=== PATIENT | male | born 1955 | race Caucasian/White ===

== ENCOUNTER → 2017-08-31 14:09 | Outpatient (CLI) | payer BC, MEDICARE ==
[2017-08-31 14:41] LABS: C-REACTIVE PROTEIN 2.7 mg/dL (0.0-0.9); URIC ACID 2.9 mg/dL (2.6-7.2)
[2017-08-31 15:20] LABS: ERYTHROCYTE SEDIMENTATION RATE 48 mm/hr (0-20)
[2017-09-03 10:12] LABS: ANA REFLEX - DIRECT Negative (Negative)
[2017-09-04 21:08] LABS: CYCLIC CITRULL PEPTIDE IGG/IGA 5 units (0-19)
== END | disposition home or self-care (01) ==
LOC: D.LABREF 14:09
PROVIDERS: Radiology Diagnostic Radiology
DX: M25.50 Pain in unspecified joint (principal)

== ENCOUNTER → 2018-01-15 08:25 | Outpatient (CLI) | payer BC, MEDICARE ==
--- NOTE | ~2018-01-15 | HEMODYNAMI ---
PATIENT:CALE FORBES MEDICAL RECORD: [id number] : 59 LOCATION:[facility] ADMISSION DATE: 01/15/18 Generatedon:01/15/201811:12 Patient name: CALE FORBES Patient #: [id number] SSN: : 1955 Date of study: 01/15/2018 Page: Of Hemodynamic Procedure Report Patient Data Patient Demographics Procedure consent was obtained First Name: CALE Gender: Male Last Name: LEIDY : 1955 [facility] Initial: POLINA Age: 62 year(s) Patient #: [id number] Race: Unknown Additional ID: [id number] Contact details Address: [address] [place] [address] State: [place] City: [place] Zip code: [address] Past Medical History Allergies: No known allergies Admission Admission Data Admission Date: 01/15/2018 Admission Time: 8:25 Admit Source: Other Lab Results Lab Result Date: 01/15/2018 Lab Result Time: 9:00 Biochemistry Name Units Result Min Max BUN mg/dl 48 --(----)-* 7 18 Creatinine mg/dl 6.5 --(----)-* 0.6 1.3 CBC Name Units Result Min Max Hematocrit % 36.2 *-(----)-- 42 54 Hemoglobin g/dl 12.2 *-(----)-- 13.5 17.5 Procedure Procedure Types Cath Procedure Diagnostic Procedure LHC LHC w/Coronaries FFR/IVUS Intra-Coronary IVUS Initial PCI Procedure Coronary Stent Coronary Stent Initial PTCA PTCA Additional Miscellaneous Procedures Moderate Sedation up to 30 minutes Procedure Description Procedure Date Procedure Date: 01/15/2018 Procedure Start Time: 10:28 Procedure End Time: 11:04 Procedure Staff Name Function Shyam Simeon RN Nurse Ever Leslie MD Performing Physician Slick Akins RT Monitor Yoly Smith RT Scrub Procedure Data Cath Procedure Fluoroscopy Diagnostic fluoroscopy Total fluoroscopy Time: 12 time: 12 min min Diagnostic fluoroscopy Total fluoroscopy dose: dose: 2895 mGy 2895 mGy Contrast Material Contrast Material Type Amount (ml) Isovue 300 204 Entry Location Entry Primary Successful Side Size Upsize Upsize Entry Closure Succes sful Closure Location (Fr) 1 (Fr) 2 (Fr) Remarks Device Remarks Femoral Right 5 Fr 6 Fr Exoseal artery Short Estimated blood loss: 10 ml Diagnostic catheters Device Type Used For End Catheter Placement MULTIPACK Pigtail 5 Fr Procedure catheter MULTIPACK JL 4.0 5Fr Procedure catheter MULTIPACK 3DRC 5Fr Procedure catheter Procedure Complications No complications Procedure Medications Medication Administration Route Dosage Oxygen NC 2 l/min Lidocaine 2% added to field 20 Heparin Flush Bag added to field 2 bags (1000units/500ml NS) 0.9% NaCl I.V. 100 ml/hr Benadryl I.V. 50 mg Versed I.V. 1 mg Fentanyl I.V. 50 mcg Versed I.V. 1 mg Fentanyl I.V. 50 mcg Heparin Bolus I.V. 4000 units Fentanyl I.V. 50 mcg Versed I.V. 1 mg Fentanyl I.V. 50 mcg Hemodynamics Rest HGB: 12.2 (g/dl) Heart Rate: 61 (bpm) Pressure Samples Time Site Value (mmHg) Purpose Heart Use Rate(bpm) 10:30 LV 160/70,76 Snapshot 63 10:30 LV 215/5,33 Snapshot 72 10:30 LV 202/27,32 Snapshot 62 10:37 AO 216/101(146) Snapshot 64 Snapshots Pre Cath Intra NCS Post Cath Vital Signs Time Heart Resp SPO2 etCO2 NIBP (mmHg) Rhythm Pain Sedation Rate (ipm) (%) (mmHg) Status Level (bpm) 10:07:21 59 12 97 0 193/94(168) NSR 0 (11) 10(A) , No pain 10:12:34 60 10 98 32.4 195/106(166) NSR 0 (11) 10(A) , No pain 10:17:48 58 15 99 26.4 202/98(181) NSR 0 (11) 10(A) , No pain 10:24:54 60 17 97 30.9 203/111(173) NSR 0 (11) 10(A) , No pain 10:29:53 60 15 98 29.4 209/107(140) NSR 0 (11) 9(A) , No pain 10:34:54 65 13 98 34 217/111(142) NSR 0 (11) 9(A) , No pain 10:39:59 65 14 98 30.2 220/116(140) NSR 0 (11) 9(A) , No pain 10:45:04 64 15 97 38.5 206/102(136) NSR 0 (11) 9(A) , No pain 10:50:05 66 29 99 33.2 189/111(136) NSR 0 (11) 9(A) , No pain 10:56:04 66 16 98 36.2 218/118(147) NSR 0 (11) 9(A) , No pain 11:01:07 66 16 96 26.4 204/108(143) NSR 0 (11) 10(A) , No pain Medications Time Medication Route Dose Verified Delivered Reason Notes Effectiveness by by 10:24:22 Benadryl I.V. 50 mg Ever Buffie used for Anuj Simeon RN procedure 10:25:47 Oxygen NC 2 Ever Buffie used for l/min Anuj Simeon RN procedure 10:25:55 Lidocaine 2% added 20ml Ever Ever for local to vial Anuj Leslie MD anesthetic field 10:26:02 Heparin Flush added 2 Ever Ever used for Bag to bags Anuj Leslie MD procedure (1000units/500ml field NS) 10:26:10 0.9% NaCl I.V. 100 Ever Buffie Per physician ml/hr Anuj Simeon RN 10:27:03 Versed I.V. 1 mg Ever Buffie for sedation Anuj Simeon RN 10:27:09 Fentanyl I.V. 50 Ever Buffie for sedation mcg Anuj Simeon RN 10:31:28 Versed I.V. 1 mg Evre Buffie for sedation Anuj Simeon RN 10:31:32 Fentanyl I.V. 50 Ever Buffie for sedation mcg Anuj Simeon RN 10:37:00 Heparin Bolus I.V. 4000 Ever Buffie for verifi ed units Anuj Simeon RN anticoagulation with dr leslie 10:54:35 Fentanyl I.V. 50 Ever Buffie for sedation mcg Anuj Simeon RN 10:57:19 Versed I.V. 1 mg Ever Buffie for sedation Anuj Simeon RN 10:57:23 Fentanyl I.V. 50 Ever Howe for sedation mcg Anuj Simeon research development manager Log Time Note 9:43:39 Informed consent obtained and on chart 9:43:41 Admit Source: Other 9:45:19 Diagnostic Cath status Elective 9:45:21 Time tracking: Regular hours 9:45:25 Plan of Care:Hemodynamics will remain stable., Cardiac rhythm will remain stable., Comfort level will be maintained., Respiratory function will remain adequate., Patient/ family verbilizes understanding of procedure., Procedure tolerated without complication., Recovers from procedure without complications.. 9:45:28 Yoly Smith RT(R) sent for patient. Start room use. 9:45:40 H&P Date Dictated: 01/14/2018 Within 30 days and on chart., H&P Addendum completed by physician on day of procedure. (MUST COMPLETE FOR ALL OUTPATIENTS). 9:49:25 Patient received from Pre/Post Procedure Room to CCL 1 Alert and oriented. Tansferred to table in Supine position. 9:49:26 Warm blankets applied, and molly hugger turned on for patient comfort. 9:49:27 Correct patient and procedure confirmed by team. 9:49:28 ECG and BP/O2 sat monitors applied to patient. 9:49:30 Pre-op teaching completed and patient verbalized understanding. 9:49:30 Pre-procedure instructions explained to patient. 9:49:32 Family in waiting room. 9:49:33 Patient NPO since Midnight. 10:05:00 Patient allergic to No known allergies 10:05:02 Vital chart was started 10:05:03 Baseline sample Acquired. 10:05:06 Rhythm: sinus rhythm 10:05:08 Full Disclosure recording started 10:05:10 Is the patient allergic to Iodine/contrast media? No. 10:05:11 Is patient on blood thinner?Yes 10:05:13 ACC The patient was administered the following blood thiners within the last 24 hours: ACCPlavix 10:05:14 Patient diabetic? Yes. 10:05:15 If diabetic: On Metformin? No 10:05:17 Previous problem with sedation/anesthesia? No ? 10:05:18 Sleep apnea? Yes 10:05:18 Snore? Yes 10:05:20 Deviated septum? No 10:05:21 Sticks out tongue? No 10:05:21 Opens mouth fully? Yes 10:05:24 Airway obstruction? No ? 10:05:25 Dentures? No ? 10:05:28 Pre procedure: right dorsailis pedis pulse Doppler 10:05:30 Patient pain scale 0/10 ?. 10:05:40 IV patent on arrival in right hand with 0.9% NaCl at [facility]. 10:06:44 Lab Result : Hemoglobin 12.2 g/dl 10:06:44 Lab Result : Hematocrit 36.2 % 10:06:44 Lab Result : BUN 48 mg/dl 10:06:44 Lab Result : Creatinine 6.5 mg/dl 10:06:47 Lab results completed and on chart. 10:06:49 Right groin area was prepped with chlora-prep and draped in sterile fashion 10:06:50 Alarms reviewed by R. N. 10:06:51 Sharps counted by scrub and verified by R.N. 10:06:53 Use device set Femoral Dx 10:06:54 ACIST Syringe (36693) opened to sterile field. 10:06:55 Medline Cath Pack ([id number]) opened to sterile field. 10:06:55 Bag Decanter (2002S) opened to sterile field. 10:06:56 ACIST Manifold (74494) opened to sterile field. 10:06:56 ACIST Hand Control (33508) opened to sterile field. 10:06:57 Tegaderm 4 x 4 (1626W) opened to sterile field. 10:06:59 PERCUTANEOUS ENTRY 19GA needle opened to sterile field. 10:07:04 DIAGNOSTIC Multipack 5Fr catheter set (HN6683) opened to sterile field. 10:07:05 SHEATH 5FR [place] (LQQ818) opened to sterile field. 10:07:06 DIAGNOSTIC WIRE .035 260cm J wire (635897) opened to sterile field. 10:15:05 Timer 1 started at 9:45 AM, stopped at 10:15 AM, duration 00:29:58 sec. 10:16:59 Final Timeout: patient, procedure, and site verified with staff and physician. All members of the team are in agreement. 10:16:59 --------ALL STOP TIME OUT------ 10:16:59 Physician arrived 10:17:02 Right groin site verified by team. 10:17:04 Physical assessment completed. ASA score P 2 - A patient with mild systemic disease as per Ever Leslie MD. 10:17:06 Sedation plan: IV Moderate Sedation Medication:Versed, Fentanyl 10:17:41 Zero performed for pressure channel P1 10:24:22 Benadryl 50 mg I.V. was administered by Shyam Simeon RN; used for procedure; 10::47 Oxygen 2 l/min NC was administered by Shyam Simeon RN; used for procedure; 10::55 Lidocaine 2% 20ml vial added to field was administered by Ever Leslie MD; for local anesthetic; 10::02 Heparin Flush Bag (1000units/500ml NS) 2 bags added to field was administered by Ever Leslie MD; used for procedure; 10:26:10 0.9% NaCl 100 ml/hr I.V. was administered by Shyam Simeon RN; Per physician; 10::03 Versed 1 mg I.V. was administered by Shyam Simeon RN; for sedation; 10::09 Fentanyl 50 mcg I.V. was administered by Shyam Simeon RN; for sedation; 10:28:45 Procedure started. 10:28:48 Local anesthetic to right femoral artery with Lidocaine 2% by Ever Leslie MD.INITIAL ACCESS ONLY 10:28:55 A 5 Fr sheath was inserted into the Right Femoral artery 10:29:35 A MULTIPACK Pigtail 5 Fr catheter was advanced over the wire and used for Procedure. 10:30:32 LV gram done using GRANT 10:30:37 Injector settings: Ml/sec: 10, Volume: 20, 10:30:42 EF : 30 % 10:30:44 Catheter exchanged over wire. 10:30:57 A MULTIPACK JL 4.0 5Fr catheter was advanced over the wire and used for Procedure. 10:31:09 LCA angiography performed. 10:31:28 Versed 1 mg I.V. was administered by Shyam Simeon RN; for sedation; 10::32 Fentanyl 50 mcg I.V. was administered by Shyam Simeon RN; for sedation; ::46 SHEATH 6FR [place] (NRC747) opened to sterile field. 10:31:46 INFLATOR Merit BasixCompak (BB0036) opened to sterile field. 10:31:51 EXOSEAL 6Fr (EX600) opened to sterile field. 10:32:24 Catheter exchanged over wire. 10:32:32 A MULTIPACK 3DRC 5Fr catheter was advanced over the wire and used for Procedure. 10:33:01 WHISPER 190cm wire ([id number]) opened to sterile field. 10:33:06 RCA angiography performed. 10:35:05 Right renal angiography performed. 10:35:14 Left renal angiography performed. 10:35:31 Catheter removed. 10:37:00 Heparin Bolus 4000 units I.V. was administered by Shyam Simeon RN; for anticoagulation; verified with dr leslie 10:37:06 GUIDE 6FR AR 2.0 catheter (OM0ON35) opened to sterile field. 10:37:15 Sheath upsized to a 6 Fr Short. 10:37:19 6 Fr ar 2 guide catheter was inserted over the wire 10:37:24 whisper wire advanced. 10:37:36 Wire advanced across lesion. 10:37:44 [place] Eagleye IVUS Catheter (68001R) opened to sterile field. 10:37:48 IVUS catheter advanced over wire. 10:37:51 IVUS pass to RCA lesion performed. 10:37:54 IVUS catheter removed over wire. 10:40:29 Wire removed. 10:40:31 Guide catheter removed. 10:40:42 CHOICE PT Extra Support J 300cm guide wire ([id number]) opened to sterile field. 10:41:03 GUIDE 6FR EBU 4.5 catheter ([id number]) opened to sterile field. 10:41:11 6 Fr EBU 4.5 guide catheter was inserted over the wire 10:41:21 CHOICE PT wire advanced. 10:42:01 Wire advanced across lesion. 10:42:04 IVUS catheter advanced over wire. 10:42:05 IVUS pass to LAD lesion performed. 10:42:12 IVUS catheter removed over wire. 10:47:19 Inflation Number: 1 A PROMUS Premier 3.5 x 20 stent ([id number]) was prepped and advanced across the Mid LAD. The stent was deployed at 23 MARTHA for 0:10 (min:sec). 10:47:51 Stent catheter was removed intact over wire. 10:49:42 Inflation number: 2 A NC EUPHORA 4.0 x 12 balloon ([id number]) was prepped and advanced across the Mid LAD, then inflated to 23 MARTHA for 0:10 (min:sec). 10:52:56 WHISPER wire advanced to DIAG. 10:54:35 Fentanyl 50 mcg I.V. was administered by Shyam Simeon RN; for sedation; 10:54:41 Wire advanced across lesion. 10:55:20 The EMERGE OTW 3.0 x 12 balloon ([id number]) was advanced and then removed because of failure to cross lesion 10:56:58 Inflation number: 1 A EUPHORA 1.5 x 15 Balloon ([id number]) was prepped and advanced across the 1st Diag, then inflated to 21 MARTHA for 0:10 (min:sec). 10:57:17 Inflation number: 2 The EUPHORA 1.5 x 15 Balloon ([id number]) was reinflated across the 1st Diag, to 21 MARTHA for 0:10 (min:sec). 10:57:19 Versed 1 mg I.V. was administered by Shyam Simeon RN; for sedation; 10:57:23 Fentanyl 50 mcg I.V. was administered by Shyam Simeon RN; for sedation; 10:57:33 Balloon removed over the wire. 10:57:34 Wire removed from DIAG. 10:58:50 Inflation Number: 1 A YANG OTW 4.0 x 12 stent ([id number]) was prepped and advanced across the Prox LAD. The stent was deployed at 23 MARTHA for 0:10 (min:sec). 10:59:53 Wire removed. 10:59:53 Stent catheter was removed intact over wire. 10:59:54 Guide catheter removed. 11:00:04 Sheath removed intact; hemostasis achieved with Exoseal to the Right Femoral artery. 11:00:05 Procedure ended.(Physican Out) 11:00:52 Fluoroscopy time 12.00 minutes. 11:00:57 Fluoroscopy dose: 2895 mGy 11:00:57 Flurop Dose total: 2895 11:01:00 Contrast amount:Isovue 300 204ml. 11:01:01 Sharps counted by scrub and verified by R.N. 11:01:24 Insertion/operative site no bleeding no hematoma. 11:01:26 Post-op/insertion site Right Femoral artery dressed using a 4 x 4 and Tegaderm. 11:01:31 Post right femoral artery:stable, soft, clean and dry 11:01:32 Post Procedure Pulses reassessed and unchanged 11:01:34 Post-procedure physical assessment completed. ASA score P 2 - A patient with mild systemic disease as per Ever Leslie MD. 11:01:37 Post procedure rhythm: unchanged. 11:01:39 Estimated blood loss: 10 ml 11:01:41 Post procedure instruction explained to patient.Patient verbalizes understanding. 11:01:50 Patient needs reinforcement of post procedure teaching. 11:02:52 Procedure type changed to Cath procedure, Diagnostic procedure, LHC, LHC w/Coronaries, FFR/IVUS, Intra-Coronary IVUS Initial, PCI procedure, Coronary Stent, Coronary Stent Initial, PTCA, PTCA Additional, Miscellaneous Procedures, Moderate Sedation up to 30 minutes 11:04:24 Procedure and supply charges have been captured, reviewed, submitted and are correct. 11:04:26 Procedure Complication : No complications 11:04:27 Vital chart was stopped 11:04:28 See physician's report for complete and final results. 11:04:29 Report given to Pre/Post Procedure Room. 11:04:32 Patient transfered to Pre/Post Procedure Room with Stretcher. 11:04:34 Full Disclosure recording stopped 11:04:34 Procedure ended. 11:04:44 End room use (Document Last) Intervention Summary Intervention Notes Time ActionType Lesion and Equipment Action# Pressure Duration Attributes Used 10:47:19 Place stent Mid LAD PROMUS 1 23 00:10 Premier 3.5 x 20 stent ([id number]) 10:49:42 Inflate Mid LAD NC EUPHORA 2 23 00:10 balloon 4.0 x 12 balloon ([id number]) 10:55:20 Discard EMERGE OTW Balloon 3.0 x 12 balloon ([id number]) 10:56:58 Inflate 1st Diag EUPHORA 1.5 x 1 21 00:10 balloon 15 Balloon ([id number]) 10:57:17 Reinflate 1st Diag EUPHORA 1.5 x 2 21 00:10 balloon 15 Balloon ([id number]) 10:58:50 Place stent Prox LAD YANG OTW 4.0 1 23 00:10 x 12 stent ([id number]) Device Usage Item Name Manufacture Quantity Catalog Number Hospital Part Current M inimal Lot# / Charge Number Stock Stock Serial# Code ACIST Syringe Acist 1 92753 375311 183911 925079 2 0 (20175) Medical Systems Inc Bag Decanter Microtek 1 2001S 487872 04122 846925 5 (2001S) Medical Inc. Medline Cath Cardinal 1 [id number] 182703 68215 467705 5 Pack Health ([id number]) ACIST Hand Acist 1 42563 357343 180281 043133 5 Control Medical (09739) Systems Inc ACIST Acist 1 50073 332045 942684 528625 5 Manifold Medical (13776) Systems Inc Tegaderm 4 x 3M 1 1626W 851929 622129 724950 5 4 (1626W) PERCUTANEOUS Cook Medical 1 N12603 515713 641531 5 ENTRY 19GA needle DIAGNOSTIC Cardinal 1 UR1431 091034 44267 372683 3 0 Multipack 5Fr Health catheter set (WW6683) SHEATH 5FR Terumo 1 TJW775 226723 113199 942544 4 0 [place] (RJD678) DIAGNOSTIC St Fernando 1 931632 254227 490985 953564 3 0 WIRE .035 260cm J wire (306593) MULTIPACK Cardinal 1 581993 5 Pigtail 5 Fr Health catheter MULTIPACK JL Cardinal 1 631271 5 4.0 5Fr Health catheter INFLATOR Merit 1 VZ8552 669262 740811 114392 1 5 Netgamix Inc Medical BasixCompak (GH5828) SHEATH 6FR Terumo 1 QAC983 224045 546415 098551 4 0 [place] (JTN548) EXOSEAL 6Fr Cardinal 1 EX600 063965 032014 242009 1 0 (EX600) Health MULTIPACK Cardinal 1 581403 5 3DRC 5Fr Health catheter WHISPER 190cm [place] 1 [id number] 509435 102664 747494 5 wire Vascular ([id number]) GUIDE 6FR AR Medtronic 1 MJ9XM80 380307 21793 996358 1 2.0 catheter (IH1NM66) [place] 1 52758I 354211 896236 256463 8 [place] Eagley[place] IVUS Catheter (84679V) CHOICE PT Earlimart 1 [id number] 339956 271237 318656 5 Extra Support Scientific J 300cm guide wire (3046736T6) GUIDE 6FR EBU Medtronic 1 TQ6DTK86 204873 13949 428480 0 4.5 catheter ([id number]) PROMUS Earlimart 1 [id number] 352561 375872 5 [id number] Premier 3.5 x Scientific 20 stent ([id number]) [place] EUPHORA Medtronic 1 [id number] 890022 430349 422812 1 [id number] 4.0 x 12 balloon ([id number]) EMERGE OTW Earlimart 1 [id number] 451521 124006 916410 5 [id number] 3.0 x 12 Scientific balloon ([id number]) EUPHORA 1.5 x Medtronic 1 [id number] 623365 096911 163784 5 [id number] 15 Balloon ([id number]) YANG OTW 4.0 Medtronic 1 [id number] 135842 6794949 101177 5 [id number] x 12 stent ([id number]) Signature Audit [place] Stage Time Signature Unsigned Intra-Procedure 01/15/2018 Slick Akins 11:09:48 AM RT(R) Signatures Monitor : Slick Akins RT Signature : Date : Time : [place] [address] [place] [address]
--- NOTE | ~2018-01-15 | OP ---
PATIENT NAME: CALE FORBES MEDICAL RECORD: [id number] :59 LOCATION:D.CAT ADMISSION DATE: SURGEON: BARBY PRITCHETT MD DATE OF OPERATION: 01/15/2018 PROCEDURES: 1. PTCA stent to LAD. 2. PTCA LAD diagonal. 3. Left heart catheterization. 4. Selective coronary angiography. 5. Left ventriculogram. 6. Bilateral selective renal angiography. 7. Intravascular ultrasound to RCA and LAD. INDICATION: Angina and coronary artery disease, renal artery stenosis, hypertension. PROCEDURE IN DETAIL: After informed consent was obtained and after a detailed explanation of the risks, benefits as well as alternative therapies, the patient elected to proceed with angiogram and angioplasty. The right femoral area was prepped and draped in normal sterile fashion. Right femoral artery was cannulated via modified Seldinger technique with placement of 6-Macedonian sheath. All catheters exchanged through this sheath. FINDINGS: The left ventriculogram was performed in standard 30-degree GRANT view reveals global hypokinesis throughout all segments. Overall ejection fraction estimated at 35% to 40%. SELECTIVE CORONARY ANGIOGRAPHY: 1. Left main showed no significant angiographic disease. 2. Left anterior descending is extremely heavily calcified, intravascular ultrasound reveals greater than 90% stenosis times 2, the diagonal has 99% stenosis. 3. The left circumflex has [id number]-nmuyqumw irregularities, but no flow-limiting stenosis. 4. Right coronary artery has moderate irregularities, intravascular ultrasound revealed nothing greater than 70%. PTCA STENT OF THE LAD: The stents used were 4.0 x 12 [place] and 3.5 x 20 mm Promus. High-pressure balloon was taken into the mid vessel. It was a 4.0 high pressure balloon to 23 atmospheres. The diagonal was only crossed partially with a 1.5 balloon. This was inflated to 21 atmospheres. Result was 0% to 30% residual. OVERALL IMPRESSION: Successful percutaneous transluminal coronary angioplasty stent of the left anterior descending going from greater than 90% initial stenosis to 0% residual stenosis. TRANSINT:[id number] Voice Confirmation ID: [id number] DOCUMENT ID: [id number] OPERATIVE REPORT [id number] CALE FORBES BARBY PRITCHETT MD at 1159 CC: [id number] DICTATION DATE: 01/15/18 1105 RESIDENT CARE SUPERVISOR: 01/15/18 1318 DEP CLI 01/15/18 [facility] [address] [place] [address]
[~2018-01-15 08:25] MED LIST: AMBIEN5 MG PO; BYSTOLIC20 MG PO; CARDURA4 MG; CATAPRES0.3 MG PO; LANTUS INSULIN10 ML SC; LASIX80 MG PO; LYRICA75 MG PO; PLAVIX75 MG PO; TESSALON PERLE100 MG PO; TOPROL XL50 MG PO
[2018-01-15 09:05] LABS: BASOPHILS 0.9 % (0-2); EOSINOPHILS 3.7 % (0-7); HEMATOCRIT 36.2 % (42.0-54.0); HEMOGLOBIN 12.2 g/dL (13.5-17.5); LYMPHOCYTES 21.1 % (15-50); MCH 33.8 pg (26.0-34.0); MCHC 33.7 g/dL (31.0-37.0); MCV 100.3 fL (80.0-100.0); MEAN PLATELET VOLUME 11.9 fL (7.4-10.4); MONOCYTES 13.3 % (2-11); PLATELET COUNT 206 10x3/uL (130-400); RBC 3.61 10x6/uL (4.20-6.10); RDW 14.4 % (11.5-14.5); WBC 7.9 10x3/uL (4.8-10.8)
[2018-01-15 09:17] LABS: ANION GAP 19.3 mmol/L (8-16); CARBON DIOXIDE 23.4 mmol/L (21.0-32.0); CREATININE - SERUM 6.5 mg/dL (0.6-1.3); POTASSIUM - SERUM 4.7 mmol/L (3.5-5.1)
[2018-01-15 09:18] VITALS: BP 162/101; BMI 40.7
== END | disposition home or self-care (01) ==
LOC: D.CATH 08:25
PROVIDERS: Internal Medicine Interventional Cardiology
DX: I25.119 Atherosclerotic heart disease of native coronary artery with unspecified angina pectoris (principal); I70.1 Atherosclerosis of renal artery; I10 Essential (primary) hypertension; Z01.812 Encounter for preprocedural laboratory examination

== ENCOUNTER 2018-10-28 15:23 | Emergency (ER) | payer BC, MEDICARE | END 2018-10-28 18:18 | disposition left against medical advice (07) | LOC: D.ER 15:23 | DX: R53.1 Weakness (principal) ==

== ENCOUNTER → 2018-12-03 09:08 | Outpatient (CLI) | payer MEDICARE, BC ==
[2018-10-28 15:30] VITALS: BMI 33.8
[~2018-12-03 09:08] MED LIST changes: +ALEVE220 MG PO; +ATIVAN1 MG PO; +BAYER CHEWABLE81 MG PO; +CELEXA20 MG PO; +COZAAR50 MG PO; +GABAPENTIN100 MG PO; +HUMALOG 30100 UNITS/ SC; +HYDRALAZINE HCL50 MG PO; +RENVELA800 MG PO
--- NOTE | 2018-12-04 16:39 | ST ---
PATIENT:CALE FORBES MEDICAL RECORD: [id number] SEX: M LOCATION:[facility] ORDER #: ADMISSION DATE: 12/03/18 AGE OF PATIENT: 63 REFERRING PHYSICIAN: INTERPRETING PHYSICIAN: BARBY PRITCHETT MD DATE OF SERVICE: 12/03/2018 PROCEDURE: Nuclear Stress Test. INDICATION: Angina, coronary artery disease, hypertension, and hyperlipidemia. DESCRIPTION: He was exercised on standard Lexiscan protocol with 33 mCi of sestamibi injected at peak stress, 11 mCi were used previously for rest images. FINDINGS: Gated SPECT reveals a decreased ejection fraction at 41% with decreased thickening and brightening throughout the anterior segments. SPECT IMAGING: Cardiolite was used as myocardial perfusion agent. There is a mixed perfusion defect anteriorly, this includes the basal, mid, apical, anterior segments as well as the apex itself. This is partially fixed, partially reversible. The remaining segments are with homogeneous uptake at rest and stress. OVERALL IMPRESSION: This is an abnormal nuclear stress test with mixed perfusion defect anteriorly and apically with a resultant decreased ejection fraction of 41%. In this patient with ongoing symptomatology, the current scan does suggest the presence of hemodynamically significant coronary artery disease. We will proceed with coronary angiography as followup study. TRANSINT:[id number] Voice Confirmation ID: [id number] DOCUMENT ID: [id number] BARBY PRITCHETT MD at 1639 CC: [id number] DICTATION DATE: 12/03/18 1611 MOLD CLOSER: 12/04/18 0743 [facility] CLI 12/03/[address] [address]
== END | disposition home or self-care (01) ==
LOC: D.HCCARDIO 09:08
DX: I25.119 Atherosclerotic heart disease of native coronary artery with unspecified angina pectoris (principal); I10 Essential (primary) hypertension; E78.5 Hyperlipidemia, unspecified

== ENCOUNTER 2018-12-17 07:59 | Outpatient (CLI) | payer MEDICARE, BC ==
[~2018-12-17] VITALS: Ht 190.5 cm; Wt 122.7 kg
--- NOTE | ~2018-12-17 | HEMODYNAMI ---
PATIENT:CALE FORBES MEDICAL RECORD: [id number] : 59 LOCATION:[facility] ADMISSION DATE: 12/17/18 Generatedon:12/17/201811:34 Patient name: CALE FORBES Patient #: [id number] SSN: : 1955 Date of study: 12/17/2018 Page: Of Hemodynamic Procedure Report Patient Data Patient Demographics Procedure consent was obtained First Name: CALE Gender: Male Last Name: LEIDY : 1955 [facility] Initial: POLINA Age: 63 year(s) Patient #: [id number] Race: Unknown Additional ID: [id number] Contact details [address]: [address] [place] [address] State: [place] City: [place] Zip code: [address] Past Medical History Allergies: No known allergies Admission Admission Data Admission Date: 12/17/2018 Admission Time: 7:59 Admit Source: Other Height (in.): 74 BSA: 2.47 (m2) Height (cm.): 187.96 BMI: 34.67 (kg/m2) Weight (lbs.): 270 Weight (kg.): 122.47 Procedure Procedure Types Cath Procedure Diagnostic Procedure [facility] w/Coronaries Sedation Charges Moderate Sedation up to 30 minutes PCI Procedure Coronary Stent Coronary Stent Initial Peripheral Cath Diagnostic Procedure Fleet Administrator Peripheral Procedures Vsile-Eaeoxiq-Vjt-Off Procedure Description Procedure Date Procedure Date: 12/17/2018 Procedure Start Time: 11:04 Procedure End Time: 11:33 Procedure Staff Name Function Ever Leslie MD Performing Physician Jayne Durand RT Monitor Lucille Carter RT Scrub John Bower RN Nurse Procedure Data Cath Procedure Fluoroscopy Diagnostic fluoroscopy Total fluoroscopy dose: 7.5 dose: 7.5 mGy mGy Contrast Material Contrast Material Type Amount (ml) Isovue 300 157 Entry Location Entry Primary Successful Side Size Upsize Upsize Entry Closure Succes sful Closure Location (Fr) 1 (Fr) 2 (Fr) Remarks Device Remarks Femoral Right 5 Fr 7 Fr artery Short Estimated blood loss: 10 ml Diagnostic catheters Device Type Used For End Catheter Placement MULTIPACK Pigtail 5 Fr Procedure catheter MULTIPACK JL 4.0 5Fr Procedure catheter MULTIPACK 3DRC 5Fr Procedure catheter MULTIPACK Pigtail 5 Fr Procedure catheter Procedure Complications No complications Procedure Medications Medication Administration Route Dosage 0.9% NaCl I.V. 100 ml/hr Oxygen etCO2 Nasal cannula 2 l/min Heparin Flush Bag added to field 2 bags (1000units/500ml NS) Lidocaine 2% added to field 20 Versed I.V. 2 mg Fentanyl I.V. 100 mcg Heparin Bolus I.V. 4000 units Hemodynamics Rest BSA: 2.47 (m2) O2 Consumption: Estimated: 277.75 (ml/min) O2 Consumption indexed : Estimated:112.45 (ml/min/m) Heart Rate: 57 (bpm) Snapshots Pre Cath Intra NCS Post Cath Vital Signs Time Heart Resp SPO2 etCO2 NIBP (mmHg) Rhythm Pain Sedation Rate (ipm) (%) (mmHg) Status Level (bpm) 10:46:14 57 11 99 0 206/102(149) NSR 0 (11) 10(A) , No pain 10:50:46 58 14 96 0 195/91(143) NSR 0 (11) 10(A) , No pain 10:55:12 57 12 97 37.9 194/95(142) NSR 0 (11) 10(A) , No pain 10:59:39 56 11 98 37.1 185/93(148) NSR 0 (11) 10(A) , No pain 11:04:03 57 12 97 38.6 171/88(138) NSR 0 (11) 10(A) , No pain 11:08:25 59 12 98 43.2 184/82(128) NSR 0 (11) 10(A) , No pain 11:12:49 59 19 98 41.6 195/89(143) NSR 0 (11) 10(A) , No pain 11:17:20 59 12 97 42.4 176/79(120) NSR 0 (11) 10(A) , No pain 11:21:42 59 14 97 41.6 178/83(133) NSR 0 (11) 10(A) , No pain 11:26:04 58 13 97 39.4 172/87(118) NSR 0 (11) 10(A) , No pain 11:30:24 58 13 97 39.4 186/86(146) NSR 0 (11) 10(A) , No pain Medications Time Medication Route Dose Verified Delivered Reason Notes Effectiveness by by 10:52:43 0.9% NaCl I.V. 100 John John Per physician ml/hr Sathish Bower RN RN 10:53:11 Oxygen etCO2 2 John John Per physician Nasal l/min Sathish Bower cannula RN RN 10:53:23 Heparin Flush added 2 John John used for Bag to bags Sathish Bower procedure (1000units/500ml field RN RN NS) 10:53:35 Lidocaine 2% added 20ml John John for local to vial Sathish Bower anesthetic field RN RN 11:01:18 Versed I.V. 2 mg John John for sedation Sathish Bower RN RN 11:01:28 Fentanyl I.V. 100 John John for sedation mcg Sathish Bower RN RN 11:12:20 Heparin Bolus I.V. 4000 John John for units Sathish Bower anticoagulation RN [employer] Log Time Note 10:10:39 Informed consent obtained and on chart 10::44 Diagnostic Cath Status : Elective 10:11:02 John Bower RN sent for patient. Start room use. 10:11:03 Time tracking: Regular hours (M-F 7:00 - 5:00) 10:11:08 Plan of Care:Hemodynamics will remain stable., Cardiac rhythm will remain stable., Comfort level will be maintained., Respiratory function will remain adequate., Patient/ family verbilizes understanding of procedure., Procedure tolerated without complication., Recovers from procedure without complications.. 10:25:19 Admit Source: Other 10:25:32 Patient Height : 74 inches 10:25:35 Patient Weight : 270 lbs 10:37:13 Patient received from Pre/Post Procedure Room to CCL 2 Alert and oriented. Tansferred to table in Supine position. 10:37:14 Warm blankets applied, and molly hugger turned on for patient comfort. 10:37:14 Correct patient and procedure confirmed by team. 10:37:15 ECG and BP/O2 sat monitors applied to patient. 10:44:06 Vital chart was started 10:44:07 Baseline sample Acquired. 10:44:13 Rhythm: sinus rhythm 10:44:14 Full Disclosure recording started 10:44:18 H&P Date Dictated: 12/17/2018 Within 30 days and on chart., H&P Addendum completed by physician on day of procedure. (MUST COMPLETE FOR ALL OUTPATIENTS). 10:44:19 Pre-procedure instructions explained to patient. 10:44:19 Pre-op teaching completed and patient verbalized understanding. 10:44:20 Family in waiting room. 10:44:22 Patient NPO since Midnight. 10:44:23 Is the patient allergic to Iodine/contrast media? No. 10:44:24 Was the patient premedicated? No 10:44:25 Is patient on blood thinner?Yes 10:44:28 ACC The patient was administered the following blood thiners within the last 24 hours: ACCPlavix 10:44:30 Patient diabetic? No. 10:44:33 Previous problem with sedation/anesthesia? No ? 10:44:35 Snore? Yes 10:44:36 Sleep apnea? Yes 10:44:37 Deviated septum? No 10:44:38 Opens mouth fully? Yes 10:44:39 Sticks out tongue? Yes 10:44:40 Airway obstruction? No ? 10:44:43 Dentures? No ? 10:44:49 Pre procedure: right dorsailis pedis pulse 2+ Normal; easily identifiable; not easily obliterated 10:44:51 Patient pain scale 0/10 ?. 10:44:57 IV patent on arrival in right forearm with 0.9% NaCl at KVO. 10:44:59 Lab results completed and on chart. 10:45:03 Right Radial & Right Groin area was prepped with chlora-prep and draped in sterile fashion 10:45:04 Alarms reviewed by R. N. 10:45:05 Sharps counted by scrub and verified by R.N. 10:46:44 If diabetic: On Metformin? No 10:46:55 Use device set Femoral Dx 10:46:56 ACIST Syringe (51528) opened to sterile field. 10:46:57 Bag Decanter (2002S) opened to sterile field. 10:46:57 Medline Cath Pack ([id number]) opened to sterile field. 10:46:57 DIAGNOSTIC WIRE .035 260cm J wire (766344) opened to sterile field. 10:46:59 ACIST Hand Control (69697) opened to sterile field. 10:46:59 ACIST Manifold (41856) opened to sterile field. 10:47:00 DIAGNOSTIC Multipack 5Fr catheter set ([id number]) opened to sterile field. 10:47:01 Tegaderm 4 x 4 (1626W) opened to sterile field. 10:47:04 SHEATH 5FR Wendel (KFJ003) opened to sterile field. 10:52:43 0.9% NaCl 100 ml/hr I.V. was administered by John Bower RN; Per physician; 10:53:11 Oxygen 2 l/min etCO2 Nasal cannula was administered by John Bower RN; Per physician; 10:53:23 Heparin Flush Bag (1000units/500ml NS) 2 bags added to field was administered by John Bower RN; used for procedure; 10:53:35 Lidocaine 2% 20ml vial added to field was administered by John Bower RN; for local anesthetic; 10:54:37 Physician arrived 10:54:38 --------ALL STOP TIME OUT------ 10:54:39 Final Timeout: patient, procedure, and site verified with staff and physician. All members of the team are in agreement. 10:54:40 Right groin site verified by team. 10:54:46 Physical assessment completed. ASA score P 2 - A patient with mild systemic disease as per Ever Leslie MD. 10:54:51 Sedation plan: IV Moderate Sedation Medication:Versed, Fentanyl 10:59:20 Zero performed for pressure channel P1 10:59:28 Zero performed for pressure channel P1 10:59:34 Zero performed for pressure channel P1 11:01:18 Versed 2 mg I.V. was administered by John Bower RN; for sedation; 11:01:28 Fentanyl 100 mcg I.V. was administered by John Bower RN; for sedation; 11:03:56 Procedure started. 11:04:06 Local anesthetic to right femoral artery with Lidocaine 2% by Ever Leslie MD.INITIAL ACCESS ONLY 11:04:17 A 5 Fr sheath was inserted into the Right Femoral artery 11:04:30 A MULTIPACK Pigtail 5 Fr catheter was advanced over the wire and used for Procedure. 11:04:34 LV angiography performed. 11:04:47 EF : 50 % 11:04:48 Catheter removed. 11:04:55 A MULTIPACK JL 4.0 5Fr catheter was advanced over the wire and used for Procedure. 11:05:34 LCA angiography performed. 11:06:10 Catheter removed. 11:06:31 A MULTIPACK 3DRC 5Fr catheter was advanced over the wire and used for Procedure. 11:06:37 RCA angiography performed. 11:07:41 Catheter removed. 11:07:51 A MULTIPACK Pigtail 5 Fr catheter was advanced over the wire and used for Procedure. 11:08:00 Abdominal angiogram w/ runoff was performed. 11:08:02 Right leg runoff performed. 11:08:03 Left leg runoff performed. 11:09:40 SHEATH 7FR Wendel (WCI790) opened to sterile field. 11:09:41 INFLATOR Merit BasixCompak (RR7755) opened to sterile field. 11:09:42 CHOICE PT Extra Support 182cm wire ([id number]) opened to sterile field. 11:09:43 GUIDE 7FR AR 2.0 catheter (WP1IB63) opened to sterile field. 11:09:49 Catheter removed. 11:09:50 Proceeding to intervention. 11:10:00 Sheath upsized to a 7 Fr Short. 11:10:09 7 Fr AR2 guide catheter was inserted over the wire 11:12:20 Heparin Bolus 4000 units I.V. was administered by John Bower RN; for anticoagulation; 11:14:06 choice pt ex wire advanced. 11:14:16 Wire removed. 11:14:16 Guide catheter removed. 11:15:35 GUIDE 7FR ART 4.0 catheter ([id number]) opened to sterile field. 11:15:36 WHISPER 190cm wire ([id number]) opened to sterile field. 11:15:46 7 Fr ART 4 guide catheter was inserted over the wire 11:15:50 Whisper wire advanced. 11:16:08 Wire advanced across lesion. 11:18:27 Stent catheter was removed intact over wire. 11:18:28 Wire removed. 11:18:28 Guide catheter removed. 11:20:00 unable to access RCA moved to LAD 11:20:25 GUIDE 7FR EBU 3.5 catheter (TV2XFW09) opened to sterile field. 11:20:38 7 Fr EBU3.5 guide catheter was inserted over the wire 11:20:42 Guide catheter removed. 11:20:44 GUIDE 7FR EBU 4.0 SH catheter ([id number]) opened to sterile field. 11:21:08 7 Fr EBU 4SH guide catheter was inserted over the wire 11:21:34 choice pt wire advanced. 11:23:15 Place stent Inflation Number: 1 A YANG RX 2.5 x 26 stent ([id number]) was prepped and advanced across the Mid LAD. The stent was deployed at 13 MARTHA for 0:07 (min:sec). 11:25:12 Place stent Inflation Number: 1 A YANG RX 3.5 x 08 stent ([id number]) was prepped and advanced across the Mid LAD1. The stent was deployed at 23 MARTHA for 0:11 (min:sec). 11:26:56 Stent catheter was removed intact over wire. 11:28:08 Inflate balloon Inflation number: 2 A NC EUPHORA 3.5 x 8 balloon ([id number]) was prepped and advanced across the Mid LAD, then inflated to 25 MARTHA for 0:22 (min:sec). 11:28:26 Inflation number: 3 The NC EUPHORA 3.5 x 8 balloon ([id number]) was reinflated across the Mid LAD, to 25 MARTHA for 0:15 (min:sec). 11:28:58 Wire removed. 11:28:59 Guide catheter removed. 11:29:05 Procedure ended.(Physican Out) 11:30:26 EXOSEAL 7Fr (EX700) opened to sterile field. 11:30:51 Fluoroscopy dose: 7.5 mGy 11:30:51 Flurop Dose total: 7.5 11:30:57 Contrast amount:Isovue 300 157ml. 11:30:59 Sharps counted by scrub and verified by R.N. 11:31:00 Insertion/operative site no bleeding no hematoma. 11:31:04 Post-op/insertion site Right Femoral artery dressed using a 4 x 4 and Tegaderm. 11:31:05 Post Procedure Pulses reassessed and unchanged 11:31:10 Post-procedure physical assessment completed. ASA score P 3 - A patient with severe systemic disease as per Ever Leslie MD. 11:31:14 Post procedure rhythm: unchanged. 11:31:16 Estimated blood loss: 10 ml 11:31:18 Post procedure instruction explained to patient.Patient verbalizes understanding. 11:32:17 Procedure type changed to Cath procedure, Diagnostic procedure, LHC, LHC w/Coronaries, Sedation Charges, Moderate Sedation up to 30 minutes, PCI procedure, Coronary Stent, Coronary Stent Initial, Peripheral Cath Diagnostic Procedure, Fleet Administrator Peripheral Procedures, Nzfxr-Jybjvkl-Cku-Off 11:32:19 Procedure and supply charges have been captured, reviewed, submitted and are correct. 11:33:10 Procedure Complication : No complications 11:33:12 Vital chart was stopped 11:33:17 Report given to Pre/Post Procedure Room. 11:33:20 Patient transfered to Pre/Post Procedure Room with Stretcher. 11:33:22 Procedure ended. 11:33:22 Full Disclosure recording stopped 11:33:28 End room use (Document Last) Intervention Summary Intervention Notes Time ActionType Lesion and Equipment Used Action# Pressure Duration Attributes 11:23:15 Place stent Mid LAD YANG RX 2.5 x 1 13 00:07 26 stent ([id number]) 11:25:12 Place stent Mid LAD1 YANG RX 3.5 x 1 23 00:11 08 stent ([id number]) 11:28:08 Inflate Mid LAD NC EUPHORA 3.5 2 25 00:22 balloon x 8 balloon ([id number]) 11:28:26 Reinflate Mid LAD NC EUPHORA 3.5 3 25 00:15 balloon x 8 balloon ([id number]) Device Usage Item Name Manufacture Quantity Catalog Number Hospital Part Current M inimal Lot# / Charge Number Stock Stock Serial# Code ACIST Syringe Acist 1 74121 337045 767875 984102 2 0 (54987) Medical Systems Inc Bag Decanter Microtek 1 922945 32371 361648 5 () Medical Inc. Medline Cath Medline 1 [id number] 238238 46317 340557 5 Pack ([id number]) DIAGNOSTIC St Fernando 1 675528 552617 947413 147137 3 0 WIRE .035 260cm J wire (798021) ACIST Hand Acist 1 44820 367165 756531 593453 5 Control Medical (07584) Systems Inc ACIST Manifold Acist 1 40843 205875 634673 658361 5 (80829) Medical Systems Inc DIAGNOSTIC Cardinal 1 VL2370 681840 56825 003891 3 0 Multipack 5Fr Health catheter set (OS8839) Tegaderm 4 x 4 3M 1 1626W 016927 235150 475728 5 (1626W) SHEATH 5FR Terumo 1 ZNP320 001162 852686 171324 5 Wendel (VJA348) MULTIPACK Cardinal 1 647163 5 Pigtail 5 Fr Health catheter MULTIPACK JL Cardinal 1 646164 5 4.0 5Fr Health catheter MULTIPACK 3DRC Cardinal 1 819610 5 5Fr catheter Health SHEATH 7FR Terumo 1 UMW398 461241 956586 658081 5 Wendel (MYB449) INFLATOR Merit Merit 1 FL6292 069726 749356 223874 1 5 [facility] HospitalL[facility] Ex[facility] Prep Platform [facility] (XP0808) CHOICE PT [place] 1 [id number] 807924 999252 516115 5 Extra Support Scientific 182cm wire ([id number]) GUIDE 7FR AR Medtronic 1 WY1CE58 791320 632512 224224 0 2.0 catheter (BF0ZI21) GUIDE 7FR ART [place] 1 [id number] 592572 10713 740916 0 4.0 catheter Scientific (458144945) WHISPER 190cm [place] 1 [id number] 407460 783747 060746 5 wire Vascular ([id number]) GUIDE 7FR EBU Medtronic 1 NS6VLS27 789079 978637 994364 0 3.5 catheter (KX5NJU15) GUIDE 7FR EBU Medtronic 1 [id number] 525814 677462 309625 0 4.0 SH catheter ([id number]) YANG RX 2.5 x Medtronic 1 [id number] 592211 7378751 075412 5 [id number] 26 stent ([id number]) YANG RX 3.5 x Medtronic 1 [id number] 157903 0960703 675085 5 [id number] 08 stent ([id number]) NC EUPHORA 3.5 Medtronic 1 [id number] 397917 659992 072991 1 [id number] x 8 balloon ([id number]) EXOSEAL 7Fr Cardinal 1 EX700 586032 039701 051604 5 (EX700) Health Signature Audit Amigo Stage Time Signature Unsigned Intra-Procedure 12/17/2018 Lucille Carter 11:34:02 AM RT(R) Signatures Monitor : Jayne Durand RT Signature : Date : Time : [address] [place] [address]
[~2018-12-17 07:59] MED LIST changes: -ALEVE220 MG PO; -ATIVAN1 MG PO; -BAYER CHEWABLE81 MG PO; -CELEXA20 MG PO; -COZAAR50 MG PO; -GABAPENTIN100 MG PO; -HUMALOG 30100 UNITS/ SC; -HYDRALAZINE HCL50 MG PO; -RENVELA800 MG PO
[2018-12-17] MEDS ORDERED: CELEXA20 MG PO (08:21)
[2018-12-17] MEDS ORDERED: HYDRALAZINE HCL50 MG PO (08:22)
[2018-12-17] MEDS ORDERED: GABAPENTIN100 MG PO (08:22)
[2018-12-17] MEDS ORDERED: ATIVAN1 MG PO (08:23)
[2018-12-17] MEDS ORDERED: COZAAR50 MG PO (08:23)
[2018-12-17] MEDS ORDERED: RENVELA800 MG PO (08:24)
[2018-12-17] MEDS ORDERED: HUMALOG 30100 UNITS/ SC (08:25)
[2018-12-17] MEDS ORDERED: ALEVE220 MG PO (08:26)
[2018-12-17 08:38] VITALS: BP 139/78; Ht 190.5 cm; Wt 122.7 kg
[2018-12-17 08:52] LABS: BASOPHILS 1.1 % (0-2); EOSINOPHILS 2.8 % (0-7); HEMATOCRIT 39.2 % (42.0-54.0); HEMOGLOBIN 13.1 g/dL (13.5-17.5); IMMATURE GRANULOCYTES 0.5 % (0-5); LYMPHOCYTES 31.4 % (15-50); MCH 35.5 pg (26.0-34.0); MCHC 33.4 g/dL (31.0-37.0); MCV 106.2 fL (80.0-100.0); MEAN PLATELET VOLUME 10.6 fL (7.4-10.4); MONOCYTES 14.6 % (2-11); NEUTROPHILS 49.6 % (40-80); RBC 3.69 10x6/uL (4.20-6.10); RDW 15.2 % (11.5-14.5); WBC 7.6 10x3/uL (4.8-10.8)
[2018-12-17 09:04] LABS: ANION GAP 18.7 mmol/L (8-16); CALCIUM 9.5 mg/dL (8.5-10.1); CARBON DIOXIDE 27.2 mmol/L (21.0-32.0); CREATININE - SERUM 8.4 mg/dL (0.6-1.3); POTASSIUM - SERUM 4.9 mmol/L (3.5-5.1)
[2018-12-17 10:07] LABS: PLATELET COUNT 321 10x3/uL (130-400)
--- NOTE | 2018-12-17 12:00 | NUR ---
RIGHT GROIN DRESSING C/D/I. NO S/S OF HEMATOMA NOTED. RIGHT PEDAL PULSE PALPABLE. VSS. CALL LIGHT WITHIN REACH.
[2018-12-17] MEDS ORDERED: BAYER CHEWABLE81 MG PO (12:05)
--- NOTE | 2018-12-17 12:30 | NUR ---
RIGHT GROIN DRESSING C/D/I. NO S/S OF HEMATOMA NOTED. VSS. CALL LIGHT WITHIN REACH. PEDAL PULSE PALPABLE.
--- NOTE | 2018-12-17 12:54 | NUR ---
PT'S AT BEDSIDE. RIGHT GROIN DRESSING C/D/I. NO S/S OF HEMATOMA NOTED. RIGHT PEDAL PULSE PRESENT. PT SET UP WITH SANDWICH TRAY AND DRINK.
--- NOTE | 2018-12-17 13:30 | NUR ---
RIGHT GROIN DRESSING C/D/I. NO S/S OF HEMATOMA NOTED. RIGHT PEDAL PULSE PALPABLE. VSS. CALL LIGHT WITHIN REACH.
--- NOTE | 2018-12-17 14:30 | NUR ---
HEAD OF BED INC TO 30 DEGREES. RIGHT GROIN DRESSING C/D/I. NO S/S OF HEMATOMA NOTED. VSS AT THIS TIME.
--- NOTE | 2018-12-17 15:06 | NUR ---
RIGHT AC PIV D/C'D WITH CATH TIP INTACT. PT TOLERATED WELL. INSTRUCTED TO GET UP AND GET DRESSED. PT'S AT BEDSIDE.
--- NOTE | 2018-12-17 15:15 | NUR ---
DISCUSSED DISCHARGE INSTRUCTIONS WITH PT AND PT'S FAMILY. THEY VOICED UNDERSTANDING. NO S/S OF DISTRESS NOTED.
--- NOTE | 2018-12-17 15:17 | NUR ---
PT TAKEN OUT BY WHEELCHAIR. NO S/S OF DISTRESS NOTED.
--- NOTE | 2018-12-20 12:11 | OP ---
PATIENT NAME: CALE FORBES MEDICAL RECORD: [id number] :59 LOCATION:D.CAT ADMISSION DATE: SURGEON: BARBY PRITCHETT MD DATE OF OPERATION: 12/17/2018 PROCEDURES: 1. PTCA and stent, LAD. 2. Left heart catheterization. 3. Selective coronary angiography. 4. Left ventriculogram. INDICATION: Unstable angina and coronary artery disease. PROCEDURE IN DETAIL: After informed consent was obtained with detailed description of risks and benefits as well as alternative therapies, the patient elected to proceed with angiogram and angioplasty. The right femoral area was prepped and draped in normal sterile fashion. The right femoral artery was cannulated via modified Seldinger technique with placement of 7-Canadian sheath. All catheters were exchanged through this sheath. FINDINGS: Left ventriculogram performed in standard 30-degree GRANT view reveals preserved cardiac wall motion. Ejection fraction 50%. SELECTIVE CORONARY ANGIOGRAPHY: 1. Left main has no significant angiographic disease. 2. Left anterior descending has previously placed stent. There is 70% in-stent restenosis and two areas of 80% to 90% following the previously placed stents. 3. Left circumflex has moderate irregularities, but no flow-limiting stenosis. 4. Right coronary has 2 areas of at least 70% stenosis in the distal vessel. The vessel is very calcified and very tortuous. PTCA AND STENT OF THE RCA: We attempted to use a 7-Canadian system with an ART 4 guide. No stent would even cross through the proximal vessel due to the calcium and tortuosity. We then turned our attention to the LAD. The LAD was stented with a 2.5 x 26-mm Emmett and a 3.5 x 8-mm Emmett. Result was 0% residual stenosis. OVERALL IMPRESSION: Successful PTCA and stent of the LAD, going from 80% and 90% initial stenoses to 0% residual. There is significant disease of the RCA, but this cannot be approached via transcatheter approach. TRANSINT:[id number] Voice Confirmation ID: [id number] DOCUMENT ID: [id number] BARBY PRITCHETT MD at 1211 CC: [id number] DICTATION DATE: 12/17/18 1136 COFFEE SHOP MANAGER: 12/17/18 1217 DEP CLI 12/17/18 [facility] [address] [place] [address]
== END 2018-12-17 15:17 | disposition home or self-care (01) ==
LOC: D.CATH 07:59
PROVIDERS: Internal Medicine Interventional Cardiology
DX: I25.110 Atherosclerotic heart disease of native coronary artery with unstable angina pectoris (principal); Z01.812 Encounter for preprocedural laboratory examination
CPT/HCPCS: 93458; C9600

== ENCOUNTER 2019-09-01 09:27 | Inpatient (IN) | payer MEDICARE, BC ==
[~2019-09-01] VITALS: Ht 190.5 cm; Wt 132.2 kg
[~2019-09-01 09:27] MED LIST changes: +ALEVE220 MG PO; +ATIVAN1 MG PO; +BAYER CHEWABLE81 MG PO; +BETAPACE 80 MG80 MG PO; +CELEXA20 MG PO; +COZAAR50 MG PO; +GABAPENTIN100 MG PO; +HUMALOG 30100 UNITS/ SC; +HYDRALAZINE HCL50 MG PO; +RENVELA800 MG PO
[2019-09-01 10:08] LABS: BASOPHILS 0.5 % (0-2); EOSINOPHILS 1.7 % (0-7); HEMATOCRIT 29.2 % (42.0-54.0); HEMOGLOBIN 9.6 g/dL (13.5-17.5); IMMATURE GRANULOCYTES 0.5 % (0-5); LYMPHOCYTES 19.4 % (15-50); MCH 35.3 pg (26.0-34.0); MCHC 32.9 g/dL (31.0-37.0); MCV 107.4 fL (80.0-100.0); MEAN PLATELET VOLUME 10.8 fL (7.4-10.4); MONOCYTES 7.6 % (2-11); NEUTROPHILS 70.3 % (40-80); PLATELET COUNT 219 10x3/uL (130-400); RBC 2.72 10x6/uL (4.20-6.10); RDW 13.7 % (11.5-14.5)
[2019-09-01 10:31] LABS: ALBUMIN 3.2 g/dL (3.4-5.0); ANION GAP 24.6 mmol/L (8-16); BILIRUBIN - TOTAL 0.43 mg/dL (0.2-1.3); CARBON DIOXIDE 19.4 mmol/L (21.0-32.0); CREATININE - SERUM 13.3 mg/dL (0.6-1.3); PROTEIN - SERUM 7.4 g/dL (6.4-8.2)
--- NOTE | 2019-09-01 10:40 | NUR ---
TC FROM LAB WITH CRITICAL K+ 7.0. Denisse LEDESMA NP AND TAVO TELLEZ NOTIFIED
[2019-09-01 10:44] VITALS: BP 168/84
--- NOTE | 2019-09-01 13:27 | NUR ---
PATIENT ARRIVED HERE FROM ER. HE WAS TOO WEAK TO GET TO DIALYSIS LAST SUNDAY, AND HE WAS TOO WEAK TO GET TO DIALYSIS TODAY. EMS TRANSPORTED HIM FROM HIS HOUSE.
[2019-09-01] MEDS ORDERED: BETAPACE 80 MG80 MG PO (14:48)
[2019-09-01] MEDS ORDERED: CYMBALTA30 MG PO (14:51)
[2019-09-01 15:08] VITALS: BP 171/101; BMI 37.8
--- NOTE | 2019-09-01 15:58 | NUR ---
PATIENT HAS JUST BEEN BROUGHT DOWN TO DIALYSIS.
[2019-09-01 17:58] LABS: APPEARANCE CLEAR (CLEAR); BILIRUBIN NEGATIVE (NEGATIVE); COLOR YELLOW (YELLOW); GLUCOSE 100 mg/dL (NEGATIVE); KETONE NEGATIVE (NEGATIVE); NITRITE NEGATIVE (NEGATIVE); PROTEIN TRACE mg/dL (NEGATIVE); UROBILINOGEN NORMAL (NORMAL)
[2019-09-01 20:00] VITALS: BP 148/83
--- NOTE | 2019-09-01 20:25 | NUR ---
PT RETURNED FROM DIALYSIS, AWAKE IN BED EATING MEAL, RIGHT ANTONIA INTACT AND SL, LEFT AV FISTULA WITH BRUIT PRESENT, NO C/O @ THIS TIME
[2019-09-02] VITALS: BP 129/60
[2019-09-02 04:00] VITALS: BP 124/64
[2019-09-02 05:28] LABS: BASOPHILS 0.5 % (0-2); HEMATOCRIT 27.3 % (42.0-54.0); IMMATURE GRANULOCYTES 0.8 % (0-5); LYMPHOCYTES 32.4 % (15-50); MCH 35.4 pg (26.0-34.0); MCV 107.5 fL (80.0-100.0); MEAN PLATELET VOLUME 11.1 fL (7.4-10.4); MONOCYTES 12.5 % (2-11); NEUTROPHILS 51.8 % (40-80); PLATELET COUNT 219 10x3/uL (130-400); RBC 2.54 10x6/uL (4.20-6.10); RDW 13.8 % (11.5-14.5)
[2019-09-02 05:36] LABS: CALCIUM 7.8 mg/dL (8.5-10.1); CREATININE - SERUM 10.6 mg/dL (0.6-1.3); MAGNESIUM - SERUM 2.3 mg/dL (1.8-2.4); PHOSPHOROUS 7.7 mg/dL (2.5-4.9)
[2019-09-02 05:38] LABS: ANION GAP 17.6 mmol/L (8-16); POTASSIUM - SERUM 4.6 mmol/L (3.5-5.1)
[2019-09-02 05:44] LABS: WBC 7.5 10x3/uL (4.8-10.8)
--- NOTE | 2019-09-02 07:20 | NUR ---
REPORT RECEIVED. WILL CONTINUE WITH POC. PT CURRENTLY LYING SEMI FOWLERS. CALL LIGHT W/I REACH. PT IS AAO AND UP WITH ASSIST. RR EVEN AND UNLABORED ON RA. R.AC PIV IS SALINE LOCKED. NO S/S OF DISTRESS NOTED. PT DENIES ANY NEEDS. WILL CTM.
[2019-09-02 09:29] VITALS: BP 167/89
--- NOTE | 2019-09-02 09:39 | NUR ---
AM MEDICATIONS ADMININSTERED. PT PLACED ON BEDPAN AND ASSISTED OFF WHERE PT HAD SMALL BM. NO S/S OF DISTRESS NOTED. PT DENIES ANY NEEDS. WILL CTM.
[2019-09-02 12:13] VITALS: BP 167/83
--- NOTE | 2019-09-02 12:51 | NUR ---
I have reviewed this patient and I concur with the Shift Assessment completed by the Licensed Practical Nurse today this shift.
[2019-09-02 14:30] VITALS: Ht 190.5 cm; Wt 132.2 kg
--- NOTE | 2019-09-02 15:17 | NUR ---
TRANSFERED TO DIALYSIS. WILL CTM.
--- NOTE | 2019-09-02 15:41 | MORECARE ---
CASE MANAGEMENT DISCHARGE SUMMARY PATIENT: CALE FORBES POLINA UNIT: [id number] ADM DATE: 09/01/19 AGE: 64 : 59 SEX: M ROOM/BED: D.2132 AUTHOR: BALJINDER,DOC PHYSICIAN: REFERRING PHYSICIAN: GEOVANNY WHITESIDE DO DATE OF SERVICE: 09/02/19 Discharge Plan Patient Name: CALE FORBES Facility: [facility]:[place] : 1955 Planned Disposition: Anticipated Discharge Date: Discharge Date: Expected LOS: Initial Reviewer: [email or web address] Initial Review Date: 09/01/2019 Generated: 09/02/19 4:40 pm DCP- Discharge Planning Updated by [email or web address]: Sofía Spain on 09/01/19 11:[address] DC PLAN: Rehab/HH/ or home with his . ANTICIPATED DC NEEDS: May need rehab or HH at dc. CM met with patient and his Rebekah to complete initial dc planning assessment. CM educated patient on the CM role and verbal consent given by patient to complete assessment. CM verified patient's address, phone number, and emergency contact phone numbers. Patient lives at home with his . He has had increased weakness since Sunday to the point he could not go to HD. His called EMS today when he was to weak to go to HD again today. She stated if he does not get stronger during his hospital stay he will have to go to rehab or have rehab at home. Dr. WHITESIDE in the ER and gave order for PT Consult. Discussed dc planning with her at this time. CM discussed availability of home health, rehab services, and medical equipment. If patient able to return home his will transport him home at time of discharge. Patient goes to hemodialysis on -W- @ ORD. His transports him to and from HD. CM will continue to follow and will assist as needed with dc plans/needs. Sofía Spain RN, [facility] DCPIA - Discharge Planning Initial Assessment Updated by [email or web address]: Sofía Spain on 09/01/19 12:52 pm * Is the patient Alert and Oriented? Yes * PCP Dr. Roberson * [facility] * Preadmission Environment Home with Family * ADLs Independent * Equipment Glucometer Rolling Walker Wheelchair * List name and contact numbers for known caregivers / representatives who currently or will assist patient after discharge: Rebekah Forbes - - [phone] * Verbal permission to speak to the caregivers and representatives has been obtained from the patient. Yes * Community resources currently utilized Other * Please name any agencies selected above. Hemodialysis M-W-F at [facility] transports him to and from HD. * Additional services required to return to the preadmission environment? Yes * Can the patient safely return to the preadmission environment? Yes * Has this patient been hospitalized within the prior 30 days at any hospital? No Patient Name: CALE FORBES Page [id number] at 1541 All edits/amendments must be made on the electronic document DICTATION DATE: 09/02/191539 DESIGN RELEASE ENGINEER: ESTELA 09/02/191539 RPT#: [id number] DC DATE: STATUS: ADM IN [facility] [address] [place] [address] END OF REPORT
--- NOTE | 2019-09-02 20:11 | NUR ---
NOTED PT RETURNED FROM DIALYSIS BED LOW AND LOCKED AND CALL LIGHT IN PLACE SKIN WARM AND DRY AND PT DENIES NEEDS RESP EVEN AND NONLABORED
[2019-09-02 20:35] VITALS: BP 164/76
[2019-09-03] VITALS: BP 178/86
[2019-09-03 04:30] VITALS: BP 134/77
[2019-09-03 06:06] LABS: BASOPHILS 0.9 % (0-2); EOSINOPHILS 4.7 % (0-7); HEMATOCRIT 29.2 % (42.0-54.0); HEMOGLOBIN 9.4 g/dL (13.5-17.5); IMMATURE GRANULOCYTES 0.9 % (0-5); LYMPHOCYTES 31.1 % (15-50); MCH 34.8 pg (26.0-34.0); MCHC 32.2 g/dL (31.0-37.0); MCV 108.1 fL (80.0-100.0); MONOCYTES 16.1 % (2-11); NEUTROPHILS 46.3 % (40-80); PLATELET COUNT 245 10x3/uL (130-400); RDW 13.7 % (11.5-14.5)
[2019-09-03 06:33] LABS: ANION GAP 16.1 mmol/L (8-16); CALCIUM 8.6 mg/dL (8.5-10.1); CARBON DIOXIDE 28.6 mmol/L (21.0-32.0); CREATININE - SERUM 8.2 mg/dL (0.6-1.3); PHOSPHOROUS 7.4 mg/dL (2.5-4.9)
[2019-09-03 06:36] LABS: POTASSIUM - SERUM 3.7 mmol/L (3.5-5.1)
--- NOTE | 2019-09-03 08:15 | NUR ---
PT RESTING IN BED WITH EYES OPEN CALL LIGHT IN REACH WILL MONITER
[2019-09-03 09:13] VITALS: BP 137/54
[2019-09-03 13:36] VITALS: BP 157/68
--- NOTE | 2019-09-03 14:27 | NUR ---
I have reviewed this patient and I concur with the Shift Assessment completed by the Licensed Practical Nurse today this shift.
--- NOTE | 2019-09-03 17:09 | MORECARE ---
CASE MANAGEMENT DISCHARGE SUMMARY PATIENT: CALE FORBES UNIT: [id number] ADM DATE: 09/01/19 AGE: 64 : 59 SEX: M ROOM/BED: D.2132 AUTHOR: VIKAS GALE PHYSICIAN: REFERRING PHYSICIAN: GEOVANNY WHITESIDE DO DATE OF SERVICE: 09/03/19 Discharge Plan Patient Name: CALE FORBES Facility: [facility]:[place] : 1955 Planned Disposition: Home Anticipated Discharge Date: 09/04/19 Discharge Date: Expected LOS: 3 Initial Reviewer: [id number] Initial Review Date: 09/01/2019 Generated: 09/03/19 6:09 pm Comments DCP- Discharge Planning Updated by [email or web address]: Benito Price on 09/03/19 4:[address] Patient Name: CALE FORBES Encounter No: [id number] : 1955 Primary Insurance: MEDICARE A & B Anticipated DC Date: 09-04-2019 Planned Disposition: Home DCP follow-up note: CM MET WITH PT IN ROOM TO DISCUSS DISCHARGE NEEDS AND PLANNING.CALE FORBES provided verbal consent to discuss current and ongoing needs with/in the presence of: SPOUSE, LIMA. CM DISCUSSED AVAILABILITY OF HOME HEALTH, REHAB SERVICES AND MEDICAL EQUIPMENT. PT AND SPOUSE BOTH DENIED DISCHARGE NEEDS. THEY DECLINED REHAB AND HOME HEALTH SERVICES. SPOUSE TO TRANSPORT HOME AT DISCHARGE. IMPORTANT MESSAGE FROM MEDICARE PROVIDED AND EXPLAINED. CM TO FOLLOW AND ASSIST NEEDED. SINYD Gongora DCP- Discharge Planning Updated by [email or web address]: Sofía Spain on 09/01/19 11:[address] DC PLAN: Rehab/HH/ or home with his . ANTICIPATED DC NEEDS: May need rehab or HH at dc. CM met with patient and his Lima to complete initial dc planning assessment. CM educated patient on the CM role and verbal consent given by patient to complete assessment. CM verified patient's address, phone number, and emergency contact phone numbers. Patient lives at home with his . He has had increased weakness since Sunday to the point he could not go to HD. His called EMS today when he was to weak to go to HD again today. She stated if he does not get stronger during his hospital stay he will have to go to rehab or have rehab at home. Dr. WHITESIDE in the ER and gave order for PT Consult. Discussed dc planning with her at this time. CM discussed availability of home health, rehab services, and medical equipment. If patient able to return home his will transport him home at time of discharge. Patient goes to hemodialysis on M-W-F @ [facility]. His transports him to and from HD. CM will continue to follow and will assist as needed with dc plans/needs. Sofía Spain RN, [facility] DCPIA - Discharge Planning Initial Assessment Updated by [id number]: Sofía Spain on 09/01/19 12:52 pm * Is the patient Alert and Oriented? Yes * PCP Dr. Roberson * [facility] * Preadmission Environment Home with Family * ADLs Independent * Equipment Glucometer Rolling Walker Wheelchair * List name and contact numbers for known caregivers / representatives who currently or will assist patient after discharge: Lima Forbes - - [phone] * Verbal permission to speak to the caregivers and representatives has been obtained from the patient. Yes * Community resources currently utilized Other * Please name any agencies selected above. Hemodialysis [facility]F at [facility] transports him to and from HD. * Additional services required to return to the preadmission environment? Yes * Can the patient safely return to the preadmission environment? Yes * Has this patient been hospitalized within the prior 30 days at any hospital? No Coverage Notice Reviewer: [id number] - Benito Price Notice Issued Date-Time: 09/03/2019 13:28 Notice Type: IM Discharge Notice Notice Delivered To: Patient Relationship to Patient: Ground Crew Lines Person Name: Delivery Method: HAND - Hand Delivered Sara Days: Prior Verbal Notification: Recipient Understood Notice: Yes Recipient Signature: Yes Med Rec Note Co-signed by Attending: Coverage Notice Comment: Last DP export: 09/02/19 2:41 Patient Name: CALE FORBES Page [id number] at 1709 All edits/amendments must be made on the electronic document DICTATION DATE: 09/03/191707 PADDED BOX SEWER: ESTELA 09/03/191707 RPT#: [id number] DC DATE: STATUS: ADM IN [facility] [address] [place] [address] END OF REPORT
--- NOTE | 2019-09-03 18:32 | NUR ---
PT IN DIALYSIS
[2019-09-03 20:00] VITALS: BP 150/70
--- NOTE | 2019-09-03 20:15 | NUR ---
PATIENT RETURNED FROM DIALYSIS. 5 L REMOVED. PATIENT RESTING IN BED WITH EYES OPEN. DENIES HAVING ANY PAIN OR NEEDS AT THIS TIME. BED IN LOWEST POSITION. SIDE RAILS UP. CALL LIGHT IN REACH. WILL CONTINUE TO MONITOR.
[2019-09-04] VITALS: BP 127/54
[2019-09-04 04:00] VITALS: BP 141/61
--- NOTE | 2019-09-04 04:30 | NUR ---
PATIENT RESTING IN BED WITH EYES CLOSED. NO SIGNS OF DISTRESS. BED IN LOWEST POSITION. SIDE RAILS UP. CALL LIGHT IN REACH. WILL CONTINUE TO MONITOR.
--- NOTE | 2019-09-04 07:30 | NUR ---
A/A/OX4. DENIES ANY PAIN OR DISCOMFORT AND NO REQUESTS VOICED. ASSESSMENT COMPLETED AND WILL CONTINUE POC. CALL LIGHT IN REACH AND INSTRUCTED TO CALL FOR ANY ASSISTANCE.
--- NOTE | 2019-09-04 10:20 | NUR ---
I have reviewed this patient and I concur with the Shift Assessment completed by the Licensed Practical Nurse today this shift.
[2019-09-04 10:44] VITALS: BP 174/88
[2019-09-04 13:42] VITALS: BP 151/72
--- NOTE | 2019-09-04 14:16 | NUR ---
Nutrition Follow-up: Good appetite/PO intake. Diet: Renal Carb Consistent PO intake: 50-100% Wt: 291# Last BM: 09/03 Labs reviewed Meds noted: Lantus, Floranex, Nephrovite, Renvela, Humulin Continue current diet as tolerated. RD following.
[2019-09-04 18:20] VITALS: BP 143/75
--- NOTE | 2019-09-04 19:10 | NUR ---
BEDSIDE REPORT RECEIVED FROM DAY SHIFT, PT CARE ASSUMED. INTRODUCED SELF AND WROTE NAME ON BOARD. PT SITTING UP IN BED, WATCHING TV, AAOX4. DENIES ANY NEEDS AT THIS TIME. BED IN LOWEST POSITION, SR X2, CALL LIGHT WITHIN REACH. WILL CONTINUE TO MONITOR.
[2019-09-04 20:00] VITALS: BP 166/81
[2019-09-05] VITALS: BP 150/72
[2019-09-05 04:00] VITALS: BP 155/83
[2019-09-05 06:45] LABS: ANION GAP 16.5 mmol/L (8-16); CALCIUM 8.7 mg/dL (8.5-10.1); CARBON DIOXIDE 28.8 mmol/L (21.0-32.0)
[2019-09-05 06:57] LABS: CREATININE - SERUM 10.4 mg/dL (0.6-1.3); PHOSPHOROUS 9.5 mg/dL (2.5-4.9); POTASSIUM - SERUM 4.3 mmol/L (3.5-5.1)
[2019-09-05 06:58] LABS: BASOPHILS 1.1 % (0-2); HEMATOCRIT 31.6 % (42.0-54.0); HEMOGLOBIN 10.5 g/dL (13.5-17.5); IMMATURE GRANULOCYTES 1.2 % (0-5); LYMPHOCYTES 39.2 % (15-50); MCH 35.4 pg (26.0-34.0); MCHC 33.2 g/dL (31.0-37.0); MCV 106.4 fL (80.0-100.0); MEAN PLATELET VOLUME 10.9 fL (7.4-10.4); MONOCYTES 14.2 % (2-11); NEUTROPHILS 38.3 % (40-80); PLATELET COUNT 280 10x3/uL (130-400); RBC 2.97 10x6/uL (4.20-6.10); RDW 13.5 % (11.5-14.5); WBC 8.5 10x3/uL (4.8-10.8)
--- NOTE | 2019-09-05 08:13 | DS ---
PATIENT:CALE FORBES :[birth year] MEDICAL RECORD: [id number] DISCHARGE SUMMARY ADMISSION DATE: 09/01/19 DISCHARGE DATE: HISTORY: Mr. Forbes is a 64-year-old white male with end-stage renal disease, chronic dialysis, who missed dialysis for a portion last week. Comes to the Emergency Room with persistent weakness. Found to have possible pneumonia and hyperkalemia in the Emergency Room and was admitted for the above. HOSPITAL COURSE: The patient was begun on broad-spectrum antibiotics and was emergently dialyzed due to his potassium of 7. He underwent daily dialysis thereafter and had significant ultrafiltration. He also improved with antibiotic therapy and was back to baseline at the time of discharge. His last chest x-ray was improving with both antibiotics and dialysis. His last vital signs were stable and he was afebrile. His last chest x-ray was also improved. He was able to get out of bed even with his amputation. His blood sugars were controlled. He will be discharged on p.o. antibiotic therapy. DISCHARGE DIAGNOSES: 1. Pneumonia. 2. Hyperkalemia. 3. End-stage renal disease. 4. Peripheral vascular disease, status post BK amputation. 5. Chronic anemia. PLAN: The patient will be discharged today, and he will resume his outpatient dialysis. He will resume his home medicines, which will be Lantus 18 units at bedtime, Levaquin 250 daily times 5, lactobacillus 1 b.i.d., Nephro-Estefania 1 daily, Cymbalta 30 at bedtime, aspirin 1 daily, losartan 50 daily, Renagel 2.4 grams t.i.d., Betapace 20 b.i.d., Humulin R on a p.r.n. basis, gabapentin 100 t.i.d., clonidine 0.15 t.i.d., hydralazine 25 t.i.d. TRANSINT:[id number] Voice Confirmation ID: [id number] DOCUMENT ID: [id number] SOFÍA ISAAC MD at 0813 CC: [id number] DICTATION DATE: 09/05/19 0651 ACCOUNT DEVELOPMENT ASSOCIATE: 09/05/[address] [facility] [place] [address] [place] [address]
[2019-09-05 08:58] VITALS: BP 153/74
--- NOTE | 2019-09-05 09:49 | MORECARE ---
CASE MANAGEMENT DISCHARGE SUMMARY PATIENT: CALE FORBES POLINA UNIT: [id number] ADM DATE: 09/01/19 AGE: 64 : 59 SEX: M ROOM/BED: D.2132 AUTHOR: VIKAS GALE PHYSICIAN: REFERRING PHYSICIAN: GEOVANNY WHITESIDE DO DATE OF SERVICE: 09/05/19 Discharge Plan Patient Name: CALE FORBES Facility: [facility]:[place] : 1955 Planned Disposition: Home Anticipated Discharge Date: 09/05/19 Discharge Date: Expected LOS: 4 Initial Reviewer: [id number] Initial Review Date: 09/01/2019 Generated: 09/05/19 10:49 am Comments DCP- Discharge Planning Updated by [email or web address]: Benito Price on 09/05/19 8:[address] Patient Name: CALE FORBES Admission Status: ER Accout number: [id number] Admission Date: 09-01-2019 : 1955 Admission Diagnosis: Attending: SUZE Current LOS: 4 Anticipated DC Date: 09-05-2019 Planned Disposition: Home Primary Insurance: MEDICARE A & B Discharge Planning Comments: CM RECEIVED ORDER FOR DISCHARGE PLANNING AND HOME HEALTH. CM MET WITH PT IN ROOM TO DISCUSS DISCHARGE NEEDS AND PLANNING. CM DISCUSSED AVAILABILITY OF HOME HEALTH, REHAB SERVICES AND MEDICAL EQUIPMENT. PT DENIES DISCHARGE NEEDS. PT DECLINES HOME HEALTH REPORTING PLAN TO GET A GYM MEMBERSHIP AT [facility]" WHERE HE DID HIS OUTPATIENT THERAPY. PT REPORTS HOME HEALTH WAS LITTLE USE TO HIM AND HE NEEDS TO BE ON THE EXERCISE BIKE FOR HIS KNEES. SPOUSE TO TRANSPORT HOME AT DISCHARGE. CONTINUOUS MINING OPERATOR NURSE NOTIFIED. Pottery Kiln Builder: Benito Price DCP- Discharge Planning Updated by [email or web address]: Benito Price on 09/03/19 4:[address] Patient Name: CALE FORBES Encounter No: [id number] : 1955 Primary Insurance: MEDICARE A & B Anticipated DC Date: 09-04-2019 Planned Disposition: Home DCP follow-up note: CM MET WITH PT IN ROOM TO DISCUSS DISCHARGE NEEDS AND PLANNING.CALE FORBES provided verbal consent to discuss current and ongoing needs with/in the presence of: SPOUSE, LIMA. CM DISCUSSED AVAILABILITY OF HOME HEALTH, REHAB SERVICES AND MEDICAL EQUIPMENT. PT AND SPOUSE BOTH DENIED DISCHARGE NEEDS. THEY DECLINED REHAB AND HOME HEALTH SERVICES. SPOUSE TO TRANSPORT HOME AT DISCHARGE. IMPORTANT MESSAGE FROM MEDICARE PROVIDED AND EXPLAINED. CM TO FOLLOW AND ASSIST NEEDED. Benito Price, CASE MANAGEMENT DCP- Discharge Planning Updated by [id number]: Sofía Spain on 09/01/19 11:[address] DC PLAN: Rehab/HH/ or home with his . ANTICIPATED DC NEEDS: May need rehab or HH at dc. CM met with patient and his Lima to complete initial dc planning assessment. CM educated patient on the CM role and verbal consent given by patient to complete assessment. CM verified patient's address, phone number, and emergency contact phone numbers. Patient lives at home with his . He has had increased weakness since Sunday to the point he could not go to HD. His called EMS today when he was to weak to go to HD again today. She stated if he does not get stronger during his hospital stay he will have to go to rehab or have rehab at home. Dr. WHITESIDE in the ER and gave order for PT Consult. Discussed dc planning with her at this time. CM discussed availability of home health, rehab services, and medical equipment. If patient able to return home his will transport him home at time of discharge. Patient goes to hemodialysis on M-W- @ [facility]. His transports him to and from HD. CM will continue to follow and will assist as needed with dc plans/needs. Sofía Spain RN, [facility] DCPIA - Discharge Planning Initial Assessment Updated by [id number]: Sofía Spain on 09/01/19 12:52 pm * Is the patient Alert and Oriented? Yes * PCP Dr. Roberson * Pharmacy [facility] on [facility] * Preadmission Environment Home with Family * ADLs Independent * Equipment Glucometer Rolling Walker Wheelchair * List name and contact numbers for known caregivers / representatives who currently or will assist patient after discharge: Lima Forbes - - [phone] * Verbal permission to speak to the caregivers and representatives has been obtained from the patient. Yes * Community resources currently utilized Other * Please name any agencies selected above. Hemodialysis M-W-F at [facility] transports him to and from HD. * Additional services required to return to the preadmission environment? Yes * Can the patient safely return to the preadmission environment? Yes * Has this patient been hospitalized within the prior 30 days at any hospital? No Coverage Notice Reviewer: [id number] Mahogany Price Notice Issued Date-Time: 09/03/2019 13:28 Notice Type: IM Discharge Notice Notice Delivered To: Patient Relationship to Patient: Chha Name: Delivery Method: HAND - Hand Delivered Sara Days: Prior Verbal Notification: Recipient Understood Notice: Yes Recipient Signature: Yes Med Rec Note Co-signed by Attending: Coverage Notice Comment: Last DP export: 09/03/19 4:09 Patient Name: CALE FORBES Page 54416 at 0949 All edits/amendments must be made on the electronic document DICTATION DATE: 09/05/19948 ROUND KILN DRAWER: ESTELA 09/05/19948 RPT#: [id number] DC DATE: STATUS: ADM IN [facility] [address] [place] [address] END OF REPORT
--- NOTE | 2019-09-05 10:10 | NUR ---
PT TELEMETRY DC'D. RIGHT WRIST 22G IV DC'D WITH CATH INTACT. DISCHARGE PAPERWORK GIVEN AND EXPLAINED TO PT. PT HAS NO FURTHER QUESTIONS AT THIS TIME. CHART COPY SIGNED.
--- NOTE | 2019-09-05 10:10 | NUR ---
PT TAKEN DOWN TO DIALYSIS VIA WC WITH BELONGINGS. WILL DC FROM DIALYSIS.
== END 2019-09-05 10:39 | disposition home or self-care (01) | DRG 193 ==
LOC: D.ER 09:27 → D.M2 11:22
PROVIDERS: Emergency Medicine; Internal Medicine Nephrology; ADMIT Internal Medicine; ATTEND Internal Medicine
PROC: 5A1D70Z Performance of Urinary Filtration, Intermittent, Less than 6 Hours Per Day (ICD-10-PCS; principal; 2019-09-01)
DX: J18.1 Lobar pneumonia, unspecified organism (principal); N18.6 End stage renal disease; I12.0 Hypertensive chronic kidney disease with stage 5 chronic kidney disease or end stage renal disease; I25.10 Atherosclerotic heart disease of native coronary artery without angina pectoris; E11.22 Type 2 diabetes mellitus with diabetic chronic kidney disease; Z99.2 Dependence on renal dialysis; E87.5 Hyperkalemia; I48.91 Unspecified atrial fibrillation; D63.1 Anemia in chronic kidney disease; E11.51 Type 2 diabetes mellitus with diabetic peripheral angiopathy without gangrene; Z89.512 Acquired absence of left leg below knee

== ENCOUNTER → 2020-02-02 10:35 | Outpatient (CLI) | payer MEDICARE, BC ==
[2019-09-02 14:30] VITALS: BMI 36.7
[~2020-02-02 10:35] MED LIST changes: +CYMBALTA30 MG PO
[2020-02-02 13:05] LABS: BASOPHILS 0.6 % (0-2); EOSINOPHILS 0.2 % (0-7); HEMATOCRIT 27.5 % (42.0-54.0); HEMOGLOBIN 8.6 g/dL (13.5-17.5); MCH 34.1 pg (26.0-34.0); MCHC 31.3 g/dL (31.0-37.0); MCV 109.1 fL (80.0-100.0); MEAN PLATELET VOLUME 10.9 fL (7.4-10.4); MONOCYTES 10.1 % (2-11); NEUTROPHILS 69.1 % (40-80); RBC 2.52 10x6/uL (4.20-6.10); RDW 14.5 % (11.5-14.5); WBC 12.3 10x3/uL (4.8-10.8)
[2020-02-02 13:08] LABS: PLATELET COUNT 385 10x3/uL (130-400)
== END | disposition home or self-care (01) ==
LOC: D.LABREF 10:35
PROVIDERS: ATTEND Internal Medicine Nephrology
DX: N18.6 End stage renal disease (principal); E87.5 Hyperkalemia; D72.829 Elevated white blood cell count, unspecified